=== PATIENT | female | born 1980 | race Caucasian/White ===

== ENCOUNTER → 2020-12-11 12:14 | Outpatient (CLI) | payer BC, SELFPAY ==
[2020-12-11 10:54] VITALS: BMI 30.4
[2020-12-11 14:56] LABS: Absolute Lymphocyte Count 1.58 X10^3/uL (0.83-4.51); Absolute Neutrophil Count 4.1 X10^3/uL (2.0-7.7); Basophil# 0.04 X10^3/uL; Basophil% 0.6 % (0-1); Eosinophil# 0.31 X10^3/uL; Eosinophils% 4.7 % (0-5); Hematocrit 42.1 % (37-47); Lymphocyte # 1.58 X10^3/ul (0.83-4.51); Lymphocyte % 24.1 % (19-41); Mean Corp Hgb Conc 30.9 g/dL (32-36); Mean Corpuscular Hgb 26.2 pg (27.0-32.0); Mean Corpuscular Volume 84.7 fL (81-99); Mean Platelet Vol. 9.9 fl (6.2-12.0); Monocyte# 0.54 X10^3/uL; Monocyte% 8.2 % (0-10); NRBC Flagged by Analyzer 0 % (0-5); Neutrophil # 4.06 X10^3/uL (2.7-7.7); Neutrophil % 62.1 % (47-70); Platelet Count 353 K/mm3 (150-450); RBC Distribution Width CV 13.9 % (11.6-14.6); RBC Distribution Width SD 43.1 fl (35.1-43.9); Red Blood Count 4.97 M/mm3 (4.2-5.4); White Blood Count 6.6 K/mm3 (4.4-11.0)
[2020-12-11 15:16] LABS: Hemoglobin A1c 5.2 % (3.8-5.6)
[2020-12-11 15:19] LABS: ALB/GLOB Ratio 1.2 RATIO (0.9-2.4); AST(SGOT) 14 U/L (15-37); Alanine Aminotransfer ALT/SGPT 24 U/L (13-56); Albumin, Serum 3.8 g/dL (3.2-5.0); Alkaline Phosphatase 62 U/L (45-117); Anion Gap 6 (5-15); BUN 14 mg/dL (7-18); BUN/Creat Ratio 19.6 RATIO (10-20); Calcium,Total 8.7 mg/dL (8.5-10.1); Chloride 107 mmol/L (98-107); Cholesterol 162 mg/dL (200); Creatinine, Serum 0.71 mg/dL (0.55-1.02); EST Glomerular Filtration Rate 97 mL/min (>60); Est Glom Filt Rate - Afr Amer 118 mL/min (>60); Globulin 3.3 g/dL (2.2-4.2); Glucose 83 mg/dL (74-106); High Density Lipoprotein 36 mg/dL; Potassium 4.1 mmol/L (3.5-5.1); Protein, Total 7.1 g/dL (6.4-8.2); Sodium Level 139 mmol/L (136-145); Thyroid Stim Hormone (TSH) 3.23 uIU/mL (0.358-3.74); Triglycerides 147 mg/dL; Very Low Density Lipoprotein 29 mg/dL (5-40)
[2020-12-12 12:05] LABS: Vitamin D,25 Hydroxy 25.7 ng/mL
== END ==
PROVIDERS: PCP Internal Medicine; Referring Provider Internal Medicine; Visit Provider Internal Medicine
DX: K21.9 Gastro-esophageal reflux disease without esophagitis (principal); M53.9 Dorsopathy, unspecified; Z13.220 Encounter for screening for lipoid disorders; Z13.1 Encounter for screening for diabetes mellitus; E66.3 Overweight
CPT/HCPCS: 36415; 80053; 80061; 82306; 83036; 84443; 85025

== ENCOUNTER 2021-01-16 05:24 | Day surgery (SDC) | payer BC, SELFPAY ==
[2021-01-06 10:04] VITALS: BMI 30.4
[2021-01-16 05:44] LABS: Internal QC Validated? YES +Cl - CLEAR BKGD; Pregnancy, Urine Negative Negative
[2021-01-16 05:54] VITALS: BP 122/78; PULSE 47; RESP 16; TEMP 36.5; O2SAT 100; BMI 33.5
[2021-01-16] MEDS: Lactated Ringers 1,000 ML 100 ML IV (05:58)
--- NOTE | 2021-01-16 06:22 | HP.PCM_ITS ---
History and Physical Date of Admission: 01/16/21 Intake Visit Reasons: REFLUX, SCALP LESION & LOWER BACK SUBCUT. 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 Required: No Is patient in pain?: No Allergies Sulfa (Sulfonamide Antibiotics) Allergy (Severe, Verified 01/06/21 10:04) SOB Medications omeprazole 20 mg capsule,delayed release 20 mg PO BID 12/10/20 [History Confirmed 01/06/21] lorazepam 1 mg tablet 3 mg PO .as dir #3 tab 01/06/21 [Rx Confirmed 01/06/21] Is last menstrual period known: No Post menopausal: No Patient : No PFSH Medical History Anemia Asthma Back problem Chronic anxiety Gallstones GERD (gastroesophageal reflux disease) History of pneumonia Kidney stones Polycystic ovaries Skin lesion of scalp Subcutaneous nodule of back Surgical History History of cholecystectomy Family History Father Alcoholic Cancer Myocardial infarction Grandfather Alcoholic Mother Cervical cancer Brother Depression Aunt Myocardial infarction Sister Seizures Other Anxiety Social History Smoking Status: Current every day smoker alcohol intake: current alcohol intake frequency: a few times a month substance use type: does not use what type of physical activity do you participate in: none HPI HPI HPI: LENCHO GROSS, is a 40 F who presents to the office today for surgical consultation regarding 3 separate issues. Patient is referred by Dr. Nancy watkins written, my surgical consult recommendations were returned to him Patient has a subdermal lesion frontal mid scalp. Its been progressively e nlarging. She states that remotely in the past I assisted her with removing the occipital lesion. She has concerns about a 2-year history about a subcutaneous mass left lower mid back. It is sometimes tender. She does not think it is progressing but difficult for her to assess because of its position She has significant concerns regarding constant epigastric pain and heartburn. She takes omeprazole 20 mg a day and sometimes 40 mg a day. She does use tobacco and has been encouraged to cease. Her father had a history of multiple gastric ulcers. She denies bright red blood per rectum or melena. She is already had a cholecystectomy and that sounds like it was done for acute disease. ROS General General: No weight change, appetite, fatigue, colon cancer, breast cancer or weakness HEENT HEENT: No difficulty swallowing, eye injury, eye surgery, swollen glands or hoarseness Endo Endocrine: No thyroid disease, diabetes mellitus, thyroid cancer, Hair loss, heat intolerance or cold intolerance Musc Musculoskeletal: Yes back problems; No arthritis, rheumatoid arthritis, gout or joint pain Cardio Cardiovascular: No murmur, pacemaker, heart disease, atrial fibrillation, high blood pressure, heart attack, heart stent, palpitations, shortness of breat with exertion or chest pain Psych Psychiatric: Yes anxiety; No depression or hearing voices Resp Respiratory: No shortness of breath, No sleep apnea, No cough, No COPD, Yes asthma, No emphysema and No wheezing Gastro Gastrointestinal: Yes abdominal pain, No nausea or vomiting, No diarrhea, No constipation, No blood in stool, Yes acid reflux, No hemorrhoids, No ulcers, Yes gallbladder problem and No black,tarry stools [place] Hematologic: No blood thinners, No blood disorders, No bleeding, Yes anemia and No blood clots Neuro Neurologic: No weakness Exam Const General: cooperative, comfortable and anxious Nutritional Appearance: overweight HENMT Head: normal to inspection Other: Frontal scalp just at the hairline there is a slightly fixed 9 mm diameter subdermal nodule Eyes General: appearance normal, both eyes and all related structures Neck Neck: normal visual inspection Chest Other: Left low mid back nondescript slightly firm 2 cm subcutaneous mass, nontender Resp Effort & Inspection: normal respiratory effort Auscultation: clear to auscultation bilaterally Cardio Rate: regular rate Rhythm: regular rhythm GI Inspection: normal to inspection Palpation: soft and no hepatosplenomegaly Auscultation: normal bowel sounds Other: Well-healed laparoscopic cholecystectomy incisions Musc Cervical Spine: normal cervical lordosis Neuro General: patient alert Extrem General: no calf tenderness bilaterally Psych Mood: anxious mood COVID (Procedure Consent) Procedure Criteria Procedure Criteria: Yes Elective The surgeon/proceduralist and patient have discussed in detail the risk of exposure to and/or potential harm posed by the COVID-19 virus with having a surgery/procedure at this time versus the risk of delaying the surgery/procedure. It is not possible to know either the risk of delaying the surgery or procedure or chance of getting an infection with perfect accuracy, but a joint decision was made between the patient and the surgeon/proceduralist to proceed at this time with the scheduled surgery/procedure as indicated on the consent form. Assessment and Plan Assessment and Plan (1) Chronic anxiety: Status: Chronic (2) Subcutaneous nodule of back: Status: Acute (3) Skin lesion of scalp: Status: Acute (4) GERD (gastroesophageal reflux disease): Status: Acute Qualifiers: Esophagitis presence: esophagitis presence not specified Qualified Code(s): K21.9 - Gastro-esophageal reflux disease without esophagitis Plan Details Other Medications: New: lorazepam (Ativan) 1 hour prior to procedure please 3 mg (3 x 1 mg) PO .as dir 3 tabs 0RF Additional Comments: I recommended the patient excision of her right frontal scalp lesion. This has findings consistent with sebaceous cyst. I believe this can be accomplished in an office setting under local anesthetic The left lower mid back subcutaneous mass of indistinct etiology. Hopefully with some oral angiolytic I will have the opportunity to use local anesthetic and excise this in an office setting as well. The patient is admittedly quite anxious on her office visit today. She states that she does not often see physicians because of this anxiety. She is interested in however and having definitive diagnosis. Regarding the patient's heartburn symptoms and ongoing use of omeprazole for a prolonged period of time of at least 10 years I do recommend to her a esophagogastroduodenoscopy with possible biopsy or polypectomy as indicated. Attention to potential driving etiologies to the reflux or H. pylori or eosinophilic esophagitis as well as inspection for Martinez's will be pursued. Because of her chronic anxiety I anticipate monitored anesthesia care. She has had an opportunity to ask and have questions answered. We will schedule procedure at her discretion. I very much appreciate the kind opportunity of assisting with her surgical care Copy: Dr. Nancy Iyer M.D., F.A.C.S. Coding Level of Care Code 73667 Diagnoses Chronic anxiety F41.9 Subcutaneous nodule of back R22.2 Skin lesion of scalp L98.9 GERD (gastroesophageal reflux disease) K21.9 Esophagitis presence: esophagitis presence not specified I have re-examined the patient. There are no clinical changes since date of exam.
--- NOTE | 2021-01-16 06:30 | IMM_PTH ---
PATIENT: LENCHO GROSS LOC: [facility] U#:[id number] AGE/SX: 40/F ROOM: RE01/16/[address]: Dr. Frankie Iyer MD : 1980 BED: DIS: 01/16/2021 SPEC #: [id number] RECD: 01/16/21 11:34 STATUS: VIVIANA SHAY #: [id number] AL: 01/16/21 06:[address]: Frankie Iyer DEPT: IMMUNOHISTOCHEMISTRY RECD BY: Milena Garner ENTERED: 01/16/21 11:34 SP TYPE: IMMUNO OTHR DR: Dr. Nancy Rose MD Tissues: B - Stomach, NOS Procedures: H Pylori (initial) PHYSICIAN & INSTITUTION [place] [id number] SPECIMEN INFORMATION: Tissue Source: B ? Antrum biopsy Clinical Info: GERD Specimen Number: [id number] CPT code: 31670 METHODOLOGY: Deparaffinized sections of prefer/formalin-fixed tissue or PAP/DQ stained slides are incubated with monoclonal/polyclonal antibodies/oligonucleotide probes. Localization is made via biotin free immunoperoxidase method. Appropriate controls are performed and reacted as expected. Results on target cell population are indicated in the following table: RESULTS: ANTIBODY / CLONE RESULT Block B H Pylori (polyclonal) negative These tests were developed and their performance characteristics determined by [facility]. They may not have been cleared or approved by the U.S. Food and Drug Administration. The FDA has determined that such clearance or approval is not necessary. INTERPRETATION: B. Antrum, biopsy: Negative for Helicobacter pylori organisms. SJ:logan 01/17/2021
--- NOTE | 2021-01-16 06:30 | EGD_PTH ---
PATIENT: LENCHO GROSS LOC: ASIF U#:[id number] AGE/SX: 40/F ROOM: RE01/16/[address]: Dr. Frankie Iyer MD : 1980 BED: DIS: 01/16/2021 SPEC #: [id number] RECD: 01/16/21 07:00 STATUS: VIVIANA DAY #: [id number] AL: 01/16/21 06:[address]: Frnakie Iyer DEPT: SURGICAL PATHOLOGY RECD BY: Barbara Mendieta ENTERED: 01/16/21 08:49 SP TYPE: EGD BIOPSY OT DR: Dr. Nancy Rose MD Tissues: A - Duodenum, NOS B - Gastric mucous membrane C - Esophagus, NOS D - Esophagus, NOS Procedures: Special Stain Group II Surgery Specimen Level IV Alcian Blue/PAS (control) HEADER OPERATION: EGD ([facility] [place]) PRE-OP DIAGNOSIS: GERD TISSUE SUBMITTED: A - Duodenum biopsy, B - Antrum biopsy for H. pylori and path, C - Distal esophagus, D - Mid esophagus biopsy MICROSCOPIC DIAGNOSIS A. Duodenum, biopsy: A fragment of duodenal mucosa with purulent Cristhian gland hyperplasia. B. Antrum, biopsy: Mild gastritis. See microscopic description and comment. C. Distal esophagus, biopsy: Fragments of gastroesophageal mucosa with chronic inflammation. Intestinal metaplasia (goblet cell metaplasia) is not identified. See comment. D. Mid esophagus, biopsy: A fragment of squamous epithelium, no pathologic diagnosis. SJ:logan 01/17/2021 COMMENT B. The results of immunohistochemistry for Helicobacter pylori will be reported separately ([id number]). C. Alcian blue/PAS stain with matched control is used in the evaluation of the specimen. MICROSCOPIC DESCRIPTION Slides are reviewed. B. The specimen shows fragments of gastric mucosa with chronic inflammatory cell infiltrates in the lamina propria consisting of lymphocytes and plasma cells, consistent with mild chronic gastritis. GROSS DESCRIPTION A - Received in fixative is one container labeled with the patient's name and designated duodenum biopsy. The specimen consists of one irregular fragment of light gottlieb soft tissue that measures 0.4 x 0.2 x 0.1 cm. The specimen is totally submitted in one cassette. B - Received in fixative is one container labeled with the patient's name and designated antrum biopsy. The specimen consists of one irregular fragment of light gottlieb soft tissue that measures 0.4 x 0.3 x 0.1 cm. The specimen is totally submitted in one cassette. C - Received in fixative is one container labeled with the patient's name and designated distal esophagus biopsy. The specimen consists of multiple irregular fragments of light gottlieb soft tissue that in aggregate measure 2.5 x 0.5 x 0.1 cm. The specimen is totally submitted in one cassette. D - Received in fixative is one container labeled with the patient's name and designated mid esophagus biopsy. The specimen consists of one irregular fragment of light gottlieb soft tissue that measures 0.5 x 0.2 x 0.1 cm. The specimen is totally submitted in one cassette. / SJ:rg 01/16/21 TC:3 CPT: 31910 x4, 22047
[2021-01-16 06:51] VITALS: BP 122/78; BP 98/60; PULSE 67; RESP 14; TEMP 36.2; O2SAT 99
--- NOTE | 2021-01-16 06:51 | OP.CCLET_ITS ---
01/16/2021 [facility] [address] [place] [address] Re : Upper GI endoscopy procedure for Amina Titus Dear Dr. Rose This procedure was performed on January. My impressions and recommendations are as follows: Impressions : - LA Grade A reflux esophagitis. Biopsied. - Normal middle third of esophagus. Biopsied. - Small hiatal hernia. - Erythematous mucosa in the antrum. Biopsied. - Normal examined duodenum. Biopsied. Recommendations : - Discharge patient to home. - Resume previous diet. - Continue present medications. - Telephone my office for pathology results in 1 week. My findings are described in the full procedure note, which is enclosed. If I can be of further assistance, please feel free to contact me at Doctor phone number(s): Work: . Sincerely, Frankie Iyer MD 01/16/2021 6:50:46 AM This report has been signed electronically.
--- NOTE | 2021-01-16 06:51 | OP.EGD_ITS ---
Patient Name: Amina Titus Procedure Date: 01/16/2021 6:15 AM Date of : 1980 Age: 40 Procedure: Upper GI endoscopy Indications: Suspected esophageal reflux Providers: Frankie Iyer MD Referring MD: Frankie Iyer MD Medicines: See the Anesthesia note for documentation of the administered medications Complications: No immediate complications. Procedure: Pre-Anesthesia Assessment: - Prior to the procedure, a History and Physical was performed, and patient medications and allergies were reviewed. The patient's tolerance of previous anesthesia was also reviewed. The risks and benefits of the procedure and the sedation options and risks were discussed with the patient. All questions were answered, and informed consent was obtained. Prior Anticoagulants: The patient has taken no previous anticoagulant or antiplatelet agents. ASA Grade Assessment: II - A patient with mild systemic disease. After reviewing the risks and benefits, the patient was deemed in satisfactory condition to undergo the procedure. After obtaining informed consent, the endoscope was passed under direct vision. Throughout the procedure, the patient's blood pressure, pulse, and oxygen saturations were monitored continuously. The gastroscope was introduced through the mouth, and advanced to the second part of duodenum. The upper GI endoscopy was accomplished without difficulty. The patient tolerated the procedure well. Scope In: 6:35:20 AM Scope Out: 6:45:37 AM Total Procedure Duration Time 0 hours 10 minutes 17 seconds Findings: LA Grade A (one or more mucosal breaks less than 5 mm, not extending between tops of 2 mucosal folds) esophagitis with no bleeding was found 40 cm from the incisors. Biopsies were taken with a cold forceps for histology. The middle third of the esophagus was normal. Biopsies were taken with a cold forceps for histology. A small hiatal hernia was present. Diffuse mildly erythematous mucosa without bleeding was found in the gastric antrum. Biopsies were taken with a cold forceps for histology. The examined duodenum was normal. Biopsies were taken with a cold forceps for histology. Impression: - LA Grade A reflux esophagitis. Biopsied. - Normal middle third of esophagus. Biopsied. - Small hiatal hernia. - Erythematous mucosa in the antrum. Biopsied. - Normal examined duodenum. Biopsied. Recommendation: - Discharge patient to home. - Resume previous diet. - Continue present medications. - Telephone my office for pathology results in 1 week. Procedure Code(s): --- Professional --- 25399, Esophagogastroduodenoscopy, flexible, transoral; with biopsy, single or multiple Diagnosis Code(s): --- Professional --- K21.0, Gastro-esophageal reflux disease with esophagitis K44.9, Diaphragmatic hernia without obstruction or gangrene K31.89, Other diseases of stomach and duodenum CPT copyright 2017 [employer]. All rights reserved. The codes documented in this report are preliminary and upon wader boot top assembler review may be revised to meet current compliance requirements. Frankie Iyer MD 01/16/2021 6:50:46 AM This report has been signed electronically. Number of Addenda: 0 Note Initiated On: 01/16/2021 6:15 AM
[2021-01-16 06:55] VITALS: BP 107/68; BP 122/78; PULSE 68; RESP 16; O2SAT 99
[2021-01-16 07:00] VITALS: BP 111/77; BP 122/78; PULSE 65; RESP 16; O2SAT 100
[2021-01-16 07:05] VITALS: BP 122/78; BP 123/82; PULSE 56; RESP 16; TEMP 36.3; O2SAT 100
[2021-01-16 07:17] VITALS: BP 122/78
== END 2021-01-16 07:28 ==
LOC: EN 05:24 → AC 05:24
PROVIDERS: Anesthesiology; PCP Internal Medicine; Referring Provider Surgery; Visit Provider Surgery
PROC: 0DJ08ZZ Inspection of Upper Intestinal Tract, Via Natural or Artificial Opening Endoscopic (ICD-10-PCS; CPT 43235; principal; 2021-01-16 06:25)
DX: K21.00 Gastro-esophageal reflux disease with esophagitis, without bleeding (principal); K44.9 Diaphragmatic hernia without obstruction or gangrene; K31.89 Other diseases of stomach and duodenum; F41.9 Anxiety disorder, unspecified; R22.2 Localized swelling, mass and lump, trunk; L98.9 Disorder of the skin and subcutaneous tissue, unspecified; F17.200 Nicotine dependence, unspecified, uncomplicated; Z88.2 Allergy status to sulfonamides; Z90.49 Acquired absence of other specified parts of digestive tract
CPT/HCPCS: 43239; 81025; 87426; 88305; 88313; 88342; J7120; J2405

== ENCOUNTER → 2021-01-24 12:09 | Outpatient (CLI) | payer BC, SELFPAY ==
[2021-01-24 05:11] VITALS: BMI 33.5
--- NOTE | 2021-01-24 09:15 | LIP_PTH ---
PATIENT: LENCHO GROSS LOC: [facility] U#:[id number] AGE/SX: 45/F ROOM: RE01/24/[address]: Dr. Frankie Iyer MD : 1980 BED: DIS: SPEC #: [id number] RECD: 01/24/21 11:53 STATUS: VIVAINA FRANCOMatthias #: [id number] AL: 01/24/21 09:[address]: Frankie Iyer DEPT: SURGICAL PATHOLOGY RECD BY: Barbara Mendieta ENTERED: 01/24/21 13:35 SP TYPE: LIPOMA OTHR DR: Dr. Nancy Rose MD Tissues: Soft tissues, NOS Procedures: Surgery Specimen Level III HEADER OPERATION: Excision of left lower back lipoma PRE-OP DIAGNOSIS: Subcutaneous nodule of back TISSUE SUBMITTED: Left lower back lipoma MICROSCOPIC DIAGNOSIS Left lower back lipoma, excision: Fragments of mature adipose tissue consistent with lipoma with focal area of angiolipoma. SJ:logan 01/27/2021 MICROSCOPIC DESCRIPTION Slides are reviewed. GROSS DESCRIPTION Received in fixative is one container labeled with the patient's name and designated lower back soft tissue. The specimen consists of multiple irregular fragments of gottlieb-yellow fatty tissue that in aggregate measure 3 x 3 x 0.5 cm. The largest fragment is sectioned and the specimen is totally submitted in two cassettes. / AM:logan 01/24/21 TC:1 CPT: 19623
== END ==
PROVIDERS: PCP Internal Medicine; Referring Provider Surgery; Visit Provider Surgery
DX: R22.2 Localized swelling, mass and lump, trunk (principal)
CPT/HCPCS: 88304